=== PATIENT | male | born 1970 | race Hispanic/Latino ===

== ENCOUNTER 2017-05-23 09:28 | Emergency (ER) | payer BC ==
[2017-05-23 11:11] VITALS: BP 177/82
[2017-05-23] MEDS ORDERED: DELTASONE PO ONE (11:26)
[2017-05-23] MEDS ORDERED: TORADOL IM ONE (11:26)
[2017-05-23] MEDS ORDERED: TORADOL ONE (11:31)
--- NOTE | 2017-05-23 11:38 | Emergency Department Report ---
Entered by ROSITA SCHULTZ, acting as scribe for LEXA HUGO NP. 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 Denies numbness, tingling, fever, chills, nausea and vomiting. Pain is described as 5/10 on a severity scale. Patient states his gout exacerbated 2 days ago this is typical exacerbation for this patient same location intensity and duration. Denies trauma. No alleviating factors despite taking Allopurinol and no aggravating factors. NKDA. REAL Complaint: other (left knee pain) Onset/Timin -: days(s) Injury: Knee: Left Place: home Severity: moderate Severity scale (0 -10): 5 Improves With: nothing Worsens With: nothing Context: other (gout exacerbation) Associated Symptoms: denies: numbness, tingling, other (fever, chills, nausea, vomiting) - Related Data Previous Rx's Medication Instructions Recorded Last Taken Type Indomethacin [Indocin] 25 mg PO TID #21 capsule 05/23/17 Unknown Rx predniSONE [Deltasone] 40 mg PO QDAY #10 tab 05/23/17 Unknown Rx Allergies Allergy/AdvReac Type Severity Reaction Status Date / Time No Known Allergies Allergy Unverified 05/23/17 09:41 ED Review of Systems Comment: All other systems reviewed and negative Constitutional: denies: chills, fever Eyes: denies: eye pain, eye discharge, vision change ENT: denies: ear pain, throat pain Respiratory: denies: cough, shortness of breath, wheezing Cardiovascular: denies: chest pain, palpitations Endocrine: no symptoms reported Gastrointestinal: denies: nausea, vomiting Genitourinary: denies: urgency, dysuria Musculoskeletal: arthralgia, myalgia, other (left knee pain) Skin: denies: rash, lesions Neurological: denies: numbness, other (tingling) Psychiatric: denies: anxiety, depression Hematological/Lymphatic: denies: easy bleeding, easy bruising ED Past Medical Hx - Past Medical History Hx Hypertension: Yes Additional medical history: Gout - Surgical History Past Surgical History?: No - Social History Smoking Status: Never Smoker Substance Use Type: Alcohol - Medications Home Medications: Home Medications Medication Instructions Recorded Confirmed Last Taken Type Indomethacin [Indocin] 25 mg PO TID #21 capsule 05/23/17 Unknown Rx predniSONE [Deltasone] 40 mg PO QDAY #10 tab 05/23/17 Unknown Rx ED Physical Exam - General Limitations: No Limitations General appearance: alert, in no apparent distress - Head Head exam: Present: atraumatic, normocephalic, normal inspection - Eye Eye exam: Present: normal appearance, PERRL, EOMI. Absent: scleral icterus, conjunctival injection, nystagmus, periorbital swelling, periorbital tenderness Pupils: Present: normal accommodation - ENT ENT exam: Present: normal exam, normal orophraynx, mucous membranes moist, TM's normal bilaterally, normal external ear exam - Neck Neck exam: Present: normal inspection, full ROM. Absent: tenderness, meningismus, lymphadenopathy, thyromegaly - Respiratory Respiratory exam: Present: normal lung sounds bilaterally. Absent: respiratory distress, wheezes, rales, rhonchi, stridor, chest wall tenderness, accessory muscle use, decreased breath sounds, prolonged expiratory - Cardiovascular Cardiovascular Exam: Present: regular rate, normal rhythm, normal heart sounds. Absent: bradycardia, tachycardia, irregular rhythm, systolic murmur, diastolic murmur, rubs - GI/Abdominal GI/Abdominal exam: Present: soft, normal bowel sounds. Absent: distended, tenderness, guarding, rebound, rigid, diminished bowel sounds - Rectal Rectal exam: Present: deferred - Extremities Exam Extremities exam: Present: normal inspection, full ROM, normal capillary refill. Absent: tenderness, pedal edema, joint swelling, calf tenderness - Expanded Lower Extremity Exam Left Hip exam: Present: normal inspection, full ROM Upper Leg exam: Present: normal inspection, full ROM Knee exam: Present: normal inspection, full ROM, tenderness, swelling (anterior , warm to touch ), pain w/ pronation/supination, full knee extension. Absent: abrasion, laceration, ecchymosis, deformity, crepidus, dislocation, erythema, effusion, posterior draw sign, pain/laxity with valgus, pain/laxity with varus Lower Leg exam: Present: normal inspection, full ROM Ankle exam: Present: normal inspection, full ROM Foot/Toe exam: Present: normal inspection, full ROM Neuro vascular tendon exam: Present: no vascular compromise. Absent: motor deficit, sensory deficit, tendon deficit, extremity cold to touch, abnormal 2- point discrimination Gait: Positive: observed and normal - Back Exam Back exam: Present: normal inspection, full ROM. Absent: tenderness, CVA tenderness (R), CVA tenderness (L), muscle spasm, paraspinal tenderness, vertebral tenderness, rash noted - Neurological Exam Neurological exam: Present: alert, oriented X3, normal gait, reflexes normal - Psychiatric Psychiatric exam: Present: normal affect, normal mood - Skin Skin exam: Present: warm, dry, intact, normal color. Absent: rash ED Course Vital Signs 05/23/17 05/23/17 09:41 11:04 Temperature 98.8 F 98.2 F Pulse Rate 60 62 Respiratory 18 18 Rate Blood Pressure 139/84 Blood Pressure 177/82 [Left] O2 Sat by Pulse 98 96 Oximetry ED Lower Extremity MDM - Medical Decision Making pt is a 46 [address] with hx of gout usual exacerbation to knees presents for exacerbation of same, exam as noted no drawer no ecchymosis, no deformity mild erythema warm to touch full knee extension noted pt is ambulatory with minimal limp, plan: nsaids, steriods, dc with indomethacin po x 7 days , then restart allopurinol pt will follow up with pcp in as scheduled pt verbalized agreement and understanding with discharge plan. ED Disposition Clinical Impression: Exacerbation of gout Gout of left knee Qualifiers: Gout etiology: idiopathic Chronicity: chronic Presence of tophus: without tophus Qualified Code(s): M1A.0620 - Idiopathic chronic gout, left knee, without tophus (tophi) Disposition: - TO HOME OR SELFCARE Is pt being admited?: No Does the pt Need Aspirin: No Condition: Good Instructions: Acute Gouty Arthritis (ED) Prescriptions: Indomethacin [Indocin] 25 mg PO TID #21 capsule predniSONE [Deltasone] 40 mg PO QDAY #10 tab Referrals: PRIMARY CARE, [Primary Care Provider] - 3-5 Days Forms: Work/School Release Form(ED) Time of Disposition: 11:38 This documentation as recorded by the MARION reese ELIZABETH,accurately reflects the service I personally performed and the decisions made by me, LEXA HUGO NP.
== END 2017-05-23 11:58 | disposition home or self-care (01) ==
LOC: ED 09:28
DX: M1A.0620 Idiopathic chronic gout, left knee, without tophus (tophi) (principal); I10 Essential (primary) hypertension
CPT/HCPCS: 96372; 99282; J1885; J7512